=== PATIENT | male | born 1985 | race African-American/Black ===

== ENCOUNTER 2017-02-24 11:22 | Emergency (ER) | payer BC ==
[2017-02-24] MEDS ORDERED: Acetaminop/Codeine 30 MG TAB* 1 TAB (300 MG/30 MG) PO ONE (13:44)
[2017-02-24] MEDS ORDERED: NS 0.9% 1000 ML* 1,000 ML IV SCH (13:45)
[2017-02-24 14:07] VITALS: BP 137/120
--- NOTE | 2017-02-24 14:09 | RAD ---
HISTORY: , Left lower chest pain, cough COMPARISONS: None VIEWS: 4: Frontal dual-energy and lateral views of the chest. FINDINGS: CARDIOMEDIASTINAL SILHOUETTE: The cardiomediastinal silhouette is normal. TIFFANY: The tiffany are normal. PLEURA: The costophrenic angles are sharp. No pleural abnormalities are noted. LUNG PARENCHYMA: The lungs are clear. ABDOMEN: The upper abdomen is clear. There is no subphrenic gas. BONES AND SOFT TISSUES: No bone or soft tissue abnormalities are noted. OTHER: None. IMPRESSION: NO ACTIVE CARDIOPULMONARY DISEASE.
[2017-02-24 14:15] LABS: Hematocrit 40 % (42-52); Hemoglobin 13.6 g/dl (14.0-18.0); Mean Corpuscular HGB Conc 34 g/dl (31-36); Mean Corpuscular Hemoglobin 30 pg (27-31); Mean Corpuscular Volume 88 fL (80-94); Mean Platelet Volume 8 um3 (7.4-10.4); Red Blood Count 4.53 10^6/ul (4.0-5.4); Red Cell Distribution Width 14 % (10.5-15)
[2017-02-24 14:39] LABS: BUN/Creatinine Ratio 9.9 (8-20); EGFR African American 98.7 (>60); EGFR Non-African American 76.8 (>60); Globulin 3.1 g/dL (2-4); Magnesium 2.1 mg/dL (1.9-2.7); Potassium 3.5 mmol/L (3.5-5.0); Total Bilirubin 0.5 mg/dL (0.2-1.0); Total Protein 7.1 g/dL (6.4-8.9); Troponin I 0.01 ng/mL (<0.04)
[2017-02-24 14:47] LABS: Urine Bacteria Absent (Absent); Urine Bilirubin Negative (Negative); Urine Glucose Negative (Negative); Urine Nitrite Negative (Negative)
[2017-02-24 15:23] LABS: TSH (Thyroid Stimulating Horm) 1.25 mcIU/mL (0.34-5.60)
[2017-02-24] MEDS ORDERED: predniSONE TAB* 20 MG PO ONE (17:08)
[2017-02-24] MEDS ORDERED: Azithromycin TAB* 250 MG PO ONE (17:08)
--- NOTE | 2017-02-24 17:14 | ED ---
Brendan Edwards Nikita, scribed for David Cruz MD on 02/24/17 at 1348 . HPI Cardiac - HPI Summary HPI Summary: This patient is a 34 year old M presenting to ED with a chief complaint of intense coughing since 1 week ago. The CC is described as increased in intensity since last week, productive clear sputum. The patient rates the pain 8 /10 in severity. Symptoms aggravated by nothing. Symptoms alleviated by nothing. Patient reports dry cough (10 years), diaphoresis, hemoptysis, coughing spasms, felt a pop on my left side of chest, dyspnea, SOB, wheezing, clear productive cough, sore throat, abdominal pain, and rashes. Patient denies fever and ear ache. Pt went to [facility] 3 weeks ago. He received a call from them 1 week ago, explaining that he might have contracted whooping cough. - History of Current Complaint Chief Complaint: EDChestPainROMI Stated Complaint: SHORT OF BREATH COUGH Time Seen by Provider: 02/24/17 13:33 Hx Obtained From: Patient Onset/Duration: Started Weeks Ago - 1 week ago, coughing became more intense, Still Present Timing: Constant, Lasting Weeks Initial Severity: Moderate Current Severity: Moderate Pain Intensity: 8 Pain Scale Used: 0-10 Numeric Aggravating Factor(s): Nothing Alleviating Factor(s): Nothing Associated Signs and Symptoms: Positive: Other: - intense coughing since 1 week ago. . Patient reports dry cough (10 years), diaphoresis, hemoptysis, coughing spasms, felt a pop on my left side of chest, dyspnea, SOB, wheezing, clear productive cough, sore throat, abdominal pain, and rashes. Patient denies fever and ear ache. - Allergy/Home Medications Allergies/Adverse Reactions: Allergies Allergy/AdvReac Type Severity Reaction Status Date / Time No Known Drug Allergy Allergy Unknown Verified 02/24/17 14:50 Reaction Details Environmental Allergy Difficulty Uncoded 02/24/17 14:51 Breathing/Wheezing PMH/Surg Hx/FS Hx/Imm Hx Endocrine/Hematology History: Denies: Hx Diabetes Cardiovascular History: Denies: Hx Coronary Artery Disease, Hx Hypertension Infectious Disease History: No Infectious Disease History: Denies: Traveled Outside the [place] in Last 30 Days - Family History Known Family History: Positive: Hypertension Negative: Cardiac Disease, Diabetes - Social History Alcohol Use: None Substance Use Type: Reports: None Smoking Status (MU): Never Smoked Tobacco Review of Systems Positive: Chills, Skin Diaphoresis. Negative: Fever Positive: Sore Throat, Other. Negative: Ear Ache Positive: Shortness Of Breath, Cough - dry cough for 10 years; clear, productive cough since last week, coughing spasms, felt a pop on my left side of chest, Other - wheezing, dyspnea Negative: Abdominal Pain Negative: Rash All Other Systems Reviewed And Are Negative: Yes Physical Exam Triage Information Reviewed: Yes Vital Signs On Initial Exam: Initial Vitals Temp Pulse Resp BP Pulse Ox 98.6 F 82 18 130/87 98 02/24/17 11:24 02/24/17 11:24 02/24/17 11:24 02/24/17 11:24 02/24/17 11:24 Vital Signs Reviewed: Yes Appearance: Positive: No Pain Distress, Ill-Appearing - mild Skin: Positive: Warm, Skin Color Reflects Adequate Perfusion, Dry Head/Face: Positive: Normal Head/Face Inspection Eyes: Positive: EOMI, BELINDA ENT: Positive: Other - cerumen impaction bilaterally in the ears Neck: Positive: Supple, Nontender Respiratory/Lung Sounds: Positive: Clear to Auscultation, Breath Sounds Present Cardiovascular: Positive: RRR Abdomen Description: Positive: Nontender, Soft Bowel Sounds: Positive: Present Musculoskeletal: Positive: Normal, Strength/ROM Intact Neurological: Positive: Normal, Sensory/Motor Intact, Alert, Oriented to Person Place, Time Psychiatric: Positive: Affect/Mood Appropriate - Khadra Coma Scale Coma Scale Total: 15 Diagnostics - Vital Signs Vital Signs Temp Pulse Resp BP Pulse Ox 02/24/17 13:00 77 133/89 96 02/24/17 12:52 80 98 02/24/17 12:51 137/109 02/24/17 12:27 98.7 F 77 22 131/78 100 02/24/17 11:24 98.6 F 82 18 130/87 98 - Laboratory Lab Results: Lab Results 02/24/17 02/24/17 02/24/17 Range/Units 14:03 14:03 14:03 WBC (3.5-10.8) 10^3/ul RBC (4.0-5.4) 10^6/ul Hgb (14.0-18.0) g/dl Hct (42-52) % MCV (80-94) fL MCH (27-31) pg MCHC (31-36) g/dl RDW (10.5-15) % Plt Count (150-450) 10^3/ul MPV (7.4-10.4) um3 Neut % (Auto) (38-83) % Lymph % (Auto) (25-47) % [place]arro % (Auto) (1-9) % Eos % (Auto) (0-6) % Baso % (Auto) (0-2) % Absolute Neuts (auto) (1.5-7.7) 10^3/ul Absolute Lymphs (auto) (1.0-4.8) 10^3/ul Absolute Monos (auto) (0-0.8) 10^3/ul Absolute Eos (auto) (0-0.6) 10^3/ul Absolute Basos (auto) (0-0.2) 10^3/ul Absolute Nucleated RBC 10^3/ul Nucleated RBC % INR (Anticoag Therapy) 0.97 (0.89-1.11) APTT 23.6 L (26.0-36.3) seconds D-Dimer, Quantitative < 200 (Less Than 230) ng/mL Sodium 138 (133-145) mmol/L Potassium 3.5 (3.5-5.0) mmol/L Chloride 104 (101-111) mmol/L Carbon Dioxide 26 (22-32) mmol/L Anion Gap 8 (2-11) mmol/L BUN 11 (6-24) mg/dL Creatinine 1.11 (0.67-1.17) mg/dL Est GFR ( Amer) 98.7 (>60) Est GFR (Non-Af Amer) 76.8 (>60) BUN/Creatinine Ratio 9.9 (8-20) Glucose 87 (70-100) mg/dL Lactic Acid (0.5-2.0) mmol/L Calcium 9.0 (8.6-10.3) mg/dL Magnesium 2.1 (1.9-2.7) mg/dL Total Bilirubin 0.50 (0.2-1.0) mg/dL AST 18 (13-39) U/L ALT 23 (7-52) U/L Alkaline Phosphatase 46 (34-104) U/L Troponin I 0.01 (<0.04) ng/mL C-Reactive Protein 7.00 H (< 5.00) mg/L B-Natriuretic Peptide 34 ( - 100) pg/mL Total Protein 7.1 (6.4-8.9) g/dL Albumin 4.0 (3.2-5.2) g/dL Globulin 3.1 (2-4) g/dL Albumin/Globulin Ratio 1.3 (1-3) Lipase 27 (11.0-82.0) U/L TSH 1.25 (0.34-5.60) mcIU/mL Urine Color Urine Appearance Urine pH (5-9) Ur Specific [place] (1.010-1.030) Urine Protein (Negative) Urine Ketones (Negative) Urine Blood (Negative) Urine Nitrate (Negative) Urine Bilirubin (Negative) Urine Urobilinogen (Negative) Ur Leukocyte Esterase (Negative) Urine WBC (Auto) (Absent) Urine RBC (Auto) (Absent) Ur Squamous Epith Cells (Absent) Urine Bacteria (Absent) Urine Glucose (Negative) Urine Ascorbic Acid (Negative) 02/24/17 02/24/17 02/24/17 Range/Units 14:03 14:03 14:23 WBC 14.0 H (3.5-10.8) 10^3/ul RBC 4.53 (4.0-5.4) 10^6/ul Hgb 13.6 L (14.0-18.0) g/dl Hct 40 L (42-52) % MCV 88 (80-94) fL MCH 30 (27-31) pg MCHC 34 (31-36) g/dl RDW 14 (10.5-15) % Plt Count 280 (150-450) 10^3/ul MPV 8 (7.4-10.4) um3 Neut % (Auto) 56.9 (38-83) % Lymph % (Auto) 32.8 (25-47) % Navarro % (Auto) 8.8 (1-9) % Eos % (Auto) 0.3 (0-6) % Baso % (Auto) 1.2 (0-2) % Absolute Neuts (auto) 8.0 H (1.5-7.7) 10^3/ul Absolute Lymphs (auto) 4.6 (1.0-4.8) 10^3/ul Absolute Monos (auto) 1.2 H (0-0.8) 10^3/ul Absolute Eos (auto) 0 (0-0.6) 10^3/ul Absolute Basos (auto) 0.2 (0-0.2) 10^3/ul Absolute Nucleated RBC 0.02 10^3/ul Nucleated RBC % 0.1 INR (Anticoag Therapy) (0.89-1.11) APTT (26.0-36.3) seconds D-Dimer, Quantitative (Less Than 230) ng/mL Sodium (133-145) mmol/L Potassium (3.5-5.0) mmol/L Chloride (101-111) mmol/L Carbon Dioxide (22-32) mmol/L Anion Gap (2-11) mmol/L BUN (6-24) mg/dL Creatinine (0.67-1.17) mg/dL Est GFR ( Amer) (>60) Est GFR (Non-Af Amer) (>60) BUN/Creatinine Ratio (8-20) Glucose (70-100) mg/dL Lactic Acid 1.0 (0.5-2.0) mmol/L Calcium (8.6-10.3) mg/dL Magnesium (1.9-2.7) mg/dL Total Bilirubin (0.2-1.0) mg/dL AST (13-39) U/L ALT (7-52) U/L Alkaline Phosphatase (34-104) U/L Troponin I (<0.04) ng/mL C-Reactive Protein (< 5.00) mg/L B-Natriuretic Peptide ( - 100) pg/mL Total Protein (6.4-8.9) g/dL Albumin (3.2-5.2) g/dL Globulin (2-4) g/dL Albumin/Globulin Ratio (1-3) Lipase (11.0-82.0) U/L TSH (0.34-5.60) mcIU/mL Urine Color Yellow Urine Appearance Cloudy Urine pH 5.0 (5-9) Ur Specific [place] 1.036 H (1.010-1.030) Urine Protein 1+(30 mg/dl) H (Negative) Urine Ketones Trace H (Negative) Urine Blood Negative (Negative) Urine Nitrate Negative (Negative) Urine Bilirubin Negative (Negative) Urine Urobilinogen Negative (Negative) Ur Leukocyte Esterase Negative (Negative) Urine WBC (Auto) Absent (Absent) Urine RBC (Auto) Absent (Absent) Ur Squamous Epith Cells Present H (Absent) Urine Bacteria Absent (Absent) Urine Glucose Negative (Negative) Urine Ascorbic Acid * H (Negative) Result Diagrams: 02/24/17 14:03 02/24/17 14:03 Lab Statement: Any lab studies that have been ordered have been reviewed, and results considered in the medical decision making process. - Radiology CXR Radiology Interpretation Completed By: Radiologist - NO ACTIVE CARDIOPULMONARY DISEASE. ED physician has reviewed this radiology report and agrees. Disposition - Course Assessment/Plan: This patient is a 34 year old M presenting to ED with a chief complaint of intense coughing since 1 week ago. The CC is described as increased in intensity since last week, productive clear sputum. The patient rates the pain 8/10 in severity. Symptoms aggravated by nothing. Symptoms alleviated by nothing. Patient reports dry cough (10 years), diaphoresis, hemoptysis, coughing spasms, felt a pop on my left side of chest, dyspnea, SOB , wheezing, clear productive cough, and sore throat. Patient denies fever, ear ache, abdominal pain, and rashes. CXR reveals NO ACTIVE CARDIOPULMONARY DISEASE. ED physician has reviewed this radiology report and agrees. In the ED course, pt was given fluids and pain medication. Medications reviewed. BP noted and advised to follow up with PCP. TREAT WITH ZPAC. F/U PMD. IMPROVED IN ED. NO CRITICAL CARE TIME. - Diagnoses Provider Diagnoses: Bronchospasm with bronchitis, acute, Pertussis exposure Discharge - Discharge Plan Condition: Stable Disposition: HOME Patient Education Materials: Acute Bronchitis (ED), Bronchospasm (ED) Referrals: No Primary Care Phys,NOPCP [Primary Care Provider] - Additional Instructions: FOLLOW UP WITH YOUR DOCTOR FOR THE BRONCHITIS AND EXPOSURE TO PERTUSSIS. AVOID CONTACT WITH OTHER PEOPLE UNTIL YOUR PERTUSSIS SWAB RESULTS HAVE RETURNED AND YOU HAVE BEEN ON THE ANTIBIOTIC FOR 5 DAYS. RETURN TO THE EMERGENCY DEPARTMENT FOR ANY WORSENING OF YOUR CONDITION OR QUESTIONS OR CONCERNS. The documentation as recorded by the Brendan treviño Nikita accurately reflects the service I personally performed and the decisions made by me, David Cruz MD.
== END 2017-02-24 17:52 | disposition home or self-care (01) ==
LOC: ED 11:22
DX: J20.9 Acute bronchitis, unspecified (principal); Z20.818 Contact with and (suspected) exposure to other bacterial communicable diseases
CPT/HCPCS: 36415; 71020; 80053; 81003; 81015; 83605; 83690; 83735; 83880; 84443; 84484; 85025; 85379; 85610; 85730; 86140; 86703; 87798; 96360; 99282; A9270-GY; J7512

== ENCOUNTER 2017-04-26 08:43 | Day surgery (SDC) | payer BC ==
--- NOTE | 2017-04-20 20:49 | HP ---
CC: [facility]; [facility] * PREOPERATIVE HISTORY AND PHYSICAL: DATE OF ADMISSION: 04/26/17 This patient is scheduled for same-day surgery admission by Dr. Poole on , 04/26/17. DATE OF EXAM: 04/20/17. ATTENDING SURGEON: Dr. Fabian Poole * (dictated by Collette Rodriguez NP). CHIEF COMPLAINT: Gastroesophageal reflux disease. HISTORY OF PRESENT ILLNESS: The patient is a 31-year-old male referred from [facility] with gastroesophageal reflux disease. He has suffered with this for about 15 years despite being on various types of medications. It has affected his dentition. He is chronically hoarse and has chronic asthma. He has difficulty sleeping through the night. He awakens with reflux in his mouth and throat with a bitter taste and even when he has acid suppression, he ends up with alkaline reflux that affects his vocal cords. He cannot skip any dose of his acid reducers. He underwent upper endoscopy, which revealed mild diffuse gastritis and irregular Z-line, otherwise a normal esophagus. Upper GI series revealed a moderate amount of free gastroesophageal reflux. Dr. Poole examined the patient and reviewed the findings and has recommended laparoscopic Arik fundoplication. He described the nature of the surgical procedure, the relevant risks and benefits and today, I reviewed the expected postoperative care and recovery including postoperative dietary guidelines. The patient has had a chance to ask questions and stated that he understands the information and is satisfied with the answers given to his questions. He will sign surgical consent on the day of surgery. PAST MEDICAL HISTORY: Significant for asthma. PAST SURGICAL HISTORY: Rhinoplasty in 2013, corneal transplant in 2016. MEDICATIONS: 1. Montelukast, dose unspecified, daily in the morning. 2. Pantoprazole, dose unspecified, daily in the morning. 3. Zantac 150 mg at bedtime. 4. Amber 60 mg daily in the morning. 5. QNASL 2 puffs in the morning. 6. Spiriva 18 mcg 1 unit inhalation daily. 7. Dulera 100/5 mcg per actuation 2 puffs b.i.d. 8. Prednisolone eye drops 1 drop 4 times a day and he did not specify if it was in both eyes. ALLERGIES: No known drug allergies. No food or latex allergies. He does report ENVIRONMENTAL ALLERGIES. FAMILY HISTORY: No known history of deep vein thrombosis, pulmonary embolism, or bleeding tendencies. No known history of anesthesia complications. SOCIAL HISTORY: He is and is employed in IT at [employer]. He has never been a smoker. He drinks alcohol socially. REVIEW OF SYSTEMS: Constitutional: No fever or chills, excessive fatigue or weight loss. Endocrine: No diabetes or thyroid disease. Hematologic: No easy bruising or bleeding. Respiratory: Chronic cough related to acid reflux. Cardiovascular: No anginal chest pain or palpitations. Gastrointestinal: As described in history of present illness. Occasional diarrhea. No constipation. No change in bowel habits. Genitourinary: No dysuria. Musculoskeletal: No chronic back or joint pain. Neurologic: No headache, blurred vision, areas of focal weakness or numbness. General: No history of deep vein thrombosis or pulmonary embolism. No bleeding tendencies. No previous blood transfusions. No previous anesthesia complications, but the patient states with local anesthesia and conscious sedation, he has required more than the usual dosages. PHYSICAL EXAMINATION GENERAL SURVEY: The patient is a 31-year-old male, obese, well developed, in no acute distress. VITAL SIGNS: Height 64 inches, weight 240 pounds, body mass index 41.2. Blood pressure 120/84, pulse 68 and regular, respiratory rate 18, temperature 97.4. HEENT: Benign. NECK: Supple. No cervical lymphadenopathy. No thyromegaly. LUNGS: Breath sounds bilaterally clear and equal. BACK: No CVA tenderness. HEART: Regular rate and rhythm. No murmurs or rubs appreciated. ABDOMEN: Obese, soft, nondistended. Obvious umbilical hernia that is mildly tender and reducible. No other obvious masses or organomegaly. EXTREMITIES: Warm without edema or skin ulcerations. GENITALIA: Exam deferred. RECTAL: Exam deferred. NEUROLOGIC: Alert and oriented x3, steady gait. SKIN: Warm, dry, and intact. IMPRESSION: Gastroesophageal reflux disease without esophagitis. PLAN: Same-day surgery admission to Dr. Poole's service on , 04/26/17 for laparoscopic Arik fundoplication. ABBY RODRIGUEZ NP [id number]/[facility] #: [id number] [facility] [place]
[~2017-04-26 08:43] MED LIST: Buffered Lidocaine 0.9% SYRIN* 5 ML/SYR SYRINGE INTRADERM ONE
[2017-04-26] MEDS ORDERED: ceFAZolin 2 GM PREMIX (*) 2 GM/50 ML BAG IVPB ONE (08:49)
[2017-04-26] MEDS ORDERED: Buffered Lidocaine 0.9% SYRIN* 5 ML/SYR SYRINGE ONE (08:49)
[2017-04-26] MEDS ORDERED: fentaNYL* 50 MCG/ML 2 ML VIAL (100 MCG VIAL) ONE (09:27)
[2017-04-26] MEDS ORDERED: Midazolam* 1 MG/ML 2 ML VIAL (2 MG) ONE (09:27)
[2017-04-26] MEDS ORDERED: Bupivacaine 0.25% SDV* 30 ML ONE ×2 (10:14→11:12)
[2017-04-26] MEDS ORDERED: Dexamethasone IV* 4 MG/ML 1 ML (4 MG) ONE (10:49)
[2017-04-26] MEDS ORDERED: Levalbuterol HFA INHALER* 1 PUFF MDI ONE (10:49)
[2017-04-26] MEDS ORDERED: Lidocaine 2% PF * 5 ML VIAL ONE (10:49)
[2017-04-26] MEDS ORDERED: Ondansetron INJ* 2 MG/ML VIAL ONE (10:49)
[2017-04-26] MEDS ORDERED: Propofol* 10 MG/ML 20 ML BTL IV PUSH ONE (10:49)
[2017-04-26] MEDS ORDERED: Cisatracurium* 2 MG/ML MDV 5 ML ONE (11:15)
[2017-04-26] MEDS ORDERED: HYDROmorphone INJ* 1 MG/ML CARPUJECT SYRINGE ONE (11:58)
[2017-04-26] MEDS ORDERED: Ketorolac INJ* 30 MG/ML 1 ML VIAL IV PRN (12:53)
[2017-04-26] MEDS ORDERED: HYDROmorphone INJ* 1 MG/ML CARPUJECT SYRINGE IV PRN (12:53)
[2017-04-26] MEDS ORDERED: Acetaminophen TAB* 325 MG PO PRN (12:53)
[2017-04-26] MEDS ORDERED: fentaNYL* 50 MCG/ML 2 ML VIAL (100 MCG VIAL) IV PRN (12:53)
[2017-04-26] MEDS ORDERED: Ketorolac INJ* 30 MG/ML 1 ML VIAL ONE (12:55)
--- NOTE | 2017-04-26 13:02 | PN ---
Progress Note - Progress Note Date of Service: 04/26/17 Note: Brief Operative Note: Preop Dx: GERD with hiatal hernia; umbilical hernia Postop Dx: same Procedure: Laparoscopic Arik fundoplication; open repair umbilical hernia Anesthesia: GET Surgeon: Zulema Asst: ERICKSON Dugan Fluids: 1700 ml RL EBL: 30 ml Drains: none Specimen: none Findings: dictated
[2017-04-26 15:06] VITALS: BP 140/92
--- NOTE | 2017-04-26 23:05 | OP ---
CC: [facility] * DATE OF OPERATION: 04/26/17 - SD DATE OF : 83 SURGEON: Fabian Poole MD PRESCHOOL ADVISER: ERICKSON Blackwell ANESTHESIOLOGIST: Sona Weinstein MD ANESTHESIA: General anesthetic, local infiltration. PRE-OP DIAGNOSIS: Gastroesophageal reflux disease. POST-OP DIAGNOSES: Gastroesophageal reflux disease with umbilical hernia. OPERATIVE PROCEDURE: Laparoscopic Arik fundoplication with repair of umbilical hernia. DESCRIPTION OF PROCEDURE: The patient was supine on the operating room table. After adequate general anesthetic, compression stockings, Beverly Hugger warmer, and intravenous antibiotics, the abdomen was prepped with antiseptic, draped in a sterile fashion. Local infiltrative anesthesia was administered at all these sites. He was on the split leg table, appropriately padded and positioned and secured to the table. Curvilinear supraumbilical incision was created and umbilical hernia was identified. This was about 2 cm at the defect and maybe 3 cm for the hernia size. It was dissected free and reduced and a cannula was placed in the peritoneal space. Insufflation was carried out with carbon dioxide. Additional cannulae, 5-mm right upper quadrant, subxiphoid, and left anterior axillary line, and 12 mm left subcostal, were placed through small stab wounds under direct vision. The liver was tented upward, the gastrohepatic omentum was entered using the LigaSure device, and dissection carried up to the right crura. The mediastinum was entered at this location and paraesophageal dissection was carried out in the usual fashion. The left crura was also freed up from its attachments and a [place] drain was placed through the retroesophageal window and used for retraction. Once the esophagus had been well mobilized and the GE junction brought well down to the abdomen, the crura was closed retroesophageally using two sutures of 0 Ethibond. This was done around a 56-Khmer Bougie and was not too tight. Wrap was created in the usual fashion and was done with 2 sutures of 0 Ethibond. It was also sutured to the esophagus to prevent slippage. This was also not too tight around a 56- Khmer bougie. Hemostasis was excellent. The cannulae were removed. Pneumoperitoneum was allowed to escape. The umbilical hernia repair was carried up by freeing up the fascial edges and closing them in a continuous running suture of 0 Vicryl. The adipose was reapproximated with 3-0 Vicryl and skin in all cases with 5-0 Vicryl, followed by Steri-Strips. He tolerated the procedure well, was awakened, and brought to Recovery in good condition. No complications. No drains. No pathologic specimens. Sponge and instrument counts correct. Estimated blood loss was 30 mL. [id number]/[facility] #: [id number] [facility]
== END 2017-04-26 15:07 | disposition home or self-care (01) ==
LOC: OR 08:43
PROVIDERS: ATTEND Surgery
DX: K21.9 Gastro-esophageal reflux disease without esophagitis (principal); K42.9 Umbilical hernia without obstruction or gangrene; J45.998 Other asthma; R49.0 Dysphonia; E66.9 Obesity, unspecified; Z68.41 Body mass index [BMI] 40.0-44.9, adult
CPT/HCPCS: A9270-GY; J0690; J1100; J1170; J1885; J2250; J2405; J2704; J3010

== ENCOUNTER 2018-11-14 17:16 | Emergency (ER) | payer BC ==
[2018-11-14 17:37] VITALS: BP 124/99
--- NOTE | 2018-11-14 17:43 | UC ---
Laceration HPI - HPI Summary HPI Summary: 33 yo male presents with LEFT thumb laceration. He tells me that last night he was trimming his bushes and slipped sustaining a laceration to his left thumb. He cleansed the area well with water and soap. He bandaged the area and controlled the bleeding. Today he looked at it and is concerned he may need stitches. Last tetanus was within the last 3 days. - History Of Current Complaint Chief Complaint: UCLaceration Stated Complaint: FINGER LACERATION Time Seen by Provider: 11/14/18 17:43 Hx Obtained From: Patient Laceration Location: Finger Mechanism Of Injury: Sharp Trauma Onset/Duration: Sudden Onset Pain Intensity: 0 Pain Scale Used: 0-10 Numeric - Allergies/Home Medications Allergies/Adverse Reactions: Allergies Allergy/AdvReac Type Severity Reaction Status Date / Time Environmental Allergy Intermediate Difficulty Uncoded 11/14/18 17:37 Breathing/Wheezing Home Medications: Home Medications Amitriptyline TAB* [Elavil TAB*] 11/14/18 [History Confirmed 11/14/18] PMH/Surg Hx/FS Hx/Imm Hx Cardiovascular History: Hypertension Respiratory History: Asthma GI/ History: Gastroesophageal Reflux Psychological History: Anxiety - Surgical History Surgical History: Yes Surgery Procedure, Year, and Place: 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 rhinoplasty, shaved turbinates. ENDOSCOPY, [facility] FUNDALPLACATION FOR GERD - Family History Known Family History: Positive: Hypertension Negative: Cardiac Disease, Diabetes - Social History Occupation: Employed Full-time Lives: With Family Alcohol Use: Occasionally Substance Use Type: None Smoking Status (MU): Never Smoked Tobacco - Immunization History Most Recent Tetanus Shot: <5 YEARS Review of Systems All Other Systems Reviewed And Are Negative: Yes Constitutional: Positive: Negative Skin: Positive: Other - Left thumb laceration Respiratory: Positive: Negative Cardiovascular: Positive: Negative Neurovascular: Positive: Negative Neurological: Positive: Negative Psychological: Positive: Negative Physical Exam - Summary Physical Exam Summary: GENERAL: NAD. WDWN. No pain distress. SKIN: LEFT THUMB: Distal tip with horizontal 1.0cm linear laceration just through the dermis with granulation tissue forming. Clean wound without drainage , tenderness, edema, or FB. CHEST: No accessory muscle use. Breathing comfortably and in no distress. CV: Pulses intact. Cap refill <2seconds NEURO: Alert. PSYCH: Age appropriate behavior. Triage Information Reviewed: Yes Vital Signs: Initial Vital Signs Temp 97.6 F 11/14/18 17:33 Pulse 75 11/14/18 17:33 Resp 16 11/14/18 17:33 BP 124/99 11/14/18 17:33 Pulse Ox 100 11/14/18 17:33 Vital Signs Reviewed: Yes Laceration Repair - Laceration Repair 1 Description: Linear Laceration Size After Repair: Length (cm) - 1.0 Closure Material: Skin Adhesive Closure Method: Single Layer Laceration Course/Dx - Course/Dx Course Of Treatment: Not amenable to sutures. The area was brought into closer approximation and the site was glued with dermabond and band-aid applied. Advised to change the bandaid daily until well healed. - Diagnosis Provider Diagnosis: Laceration of thumb Discharge - Sign-Out/Discharge Documenting (check all that apply): Patient Departure All imaging exams completed and their final reports reviewed: No Studies - Discharge Plan Condition: Stable Disposition: HOME Patient Education Materials: Laceration (DC), Skin Adhesive Care (ED) Referrals: No Primary Care Phys,NOPCP [Primary Care Provider] - Additional Instructions: If you develop a fever, shortness of breath, chest pain, new or worsening symptoms - please call your PCP or go to the ED immediately. Change the band-aid daily until well healed (likely 4-5 days) - Billing Disposition and Condition Condition: STABLE Disposition: Home
== END 2018-11-14 18:00 | disposition home or self-care (01) ==
LOC: UCEAST 17:16
DX: S61.012A Laceration without foreign body of left thumb without damage to nail, initial encounter (principal); W27.8XXA Contact with other nonpowered hand tool, initial encounter; Y93.H2 Activity, gardening and landscaping; Y92.017 Garden or yard in single-family (private) house as the place of occurrence of the external cause; Y99.8 Other external cause status; K21.9 Gastro-esophageal reflux disease without esophagitis; F41.9 Anxiety disorder, unspecified
CPT/HCPCS: 12001; 99211; G0463